=== PATIENT | male | born 1975 | race Caucasian/White ===

== ENCOUNTER 2018-05-10 07:45 | Emergency (ER) | payer OTHER, SELFPAY ==
[2018-05-10] MEDS ORDERED: Insulin Regular 300 UNITS/3 ML VIAL ONE (08:02)
[2018-05-10 08:19] LABS: #Basophils 0.1 thou/uL (0.0-0.2); #Eosinphils 0.1 thou/uL (0.0-0.7); #Lymphocytes 2.8 thou/uL (1.20-3.40); #Monocytes 0.6 thou/uL (0.11-0.59); #Neutrophils 4.4 thou/uL (1.40-6.50); %Basophils 0.9 % (0.0-1.0); %Eosinophils 1.4 % (0.0-10.0); %Monocytes 7.7 % (0.0-10.0); Hemoglobin 15.5 g/dL (14.0-18.0); Mean Corpuscular Hemoglobin 31.1 pg (27.0-31.0); Mean Corpuscular Volume 94.2 fL (78.0-98.0); Mean Platelet Volume 7.2 fL (7.4-10.4); Platelet Count 170 thou/uL (130-400); RBC Distribution Width 11.6 % (11.5-14.5); Red Blood Cell (RBC) Count 4.97 mill/uL (4.70-6.10)
--- NOTE | 2018-05-10 08:37 | RAD ---
PORTABLE UPRIGHT FRONTAL CHEST: Date: 05/10/18 COMPARISON: 01/04/14. HISTORY: Chest pain. FINDINGS: Dual lead transvenous pacing device noted inserted via left subclavian approach. No pneumothorax, ple ural fluid, focal consolidation, or alveolar edema. Rim-calcified structure in left upper quadrant, l ikely associated with the spleen noted. IMPRESSION: No focal consolidation or alveolar edema. POS: [facility]
[2018-05-10 08:41] LABS: ALT (SGPT) 41 U/L (8-55); AST (SGOT) 21 U/L (5-34); Albumin 3.6 g/dL (3.5-5.0); Alkaline Phosphatase 112 U/L (40-150); Anion Gap 13 mmol/L (10-20); BUN (Urea Nitrogen) 9 mg/dL (8.9-20.6); Bilirubin, Total 0.5 mg/dL (0.2-1.2); Calc. Creatinine Clearance 0 mL/min (70-130); Calcium 8.7 mg/dL (7.8-10.44); Carbon Dioxide 25 mmol/L (22-29); Chloride 104 mmol/L (98-107); Estimated GFR-MDRD 82; Globulin 2.2 g/dL (2.4-3.5); Glucose 527 mg/dL (70-105); Potassium 4.7 mmol/L (3.5-5.1); Protein, Total 5.8 g/dL (6.0-8.3); Sodium 137 mmol/L (136-145)
[2018-05-10 09:54] LABS: Bilirubin Negative (Negative); Blood, Urine Negative (Negative); Clarity CLEAR (Clear); Glucose, Urine (Dipstick) >=1000 mg/dL (Negative); Leukocyte Negative (Negative); Nitrite Negative (Negative); Protein, Urine (Dipstick) Negative (Neg-Trace); Urobilinogen 0.2 mg/dL (0.2-1.0); pH, Urine 5.5 (5.0-9.0)
== END 2018-05-10 09:50 | disposition left against medical advice (07) ==
LOC: ERS 07:45
DX: I48.91 Unspecified atrial fibrillation (principal); G47.30 Sleep apnea, unspecified; E11.649 Type 2 diabetes mellitus with hypoglycemia without coma; F17.210 Nicotine dependence, cigarettes, uncomplicated; Z79.84 Long term (current) use of oral hypoglycemic drugs
CPT/HCPCS: 36415; 36416; 71045; 80053; 81003; 82010; 83880; 84484; 85025; 93005; 96361; 96374; 96375; 96376; J1815

== ENCOUNTER 2019-08-09 20:31 | Emergency (ER) | payer SELFPAY ==
--- NOTE | 2019-08-10 09:42 | RAD ---
LEFT INDEX FINGER: HISTORY: Finger pain and swelling. FINDINGS: There are some mild arthritic changes present. I do not see any acute bony findings or signs for any soft tissue abscess collection. IMPRESSION: No acute findings. POS: [id number]
== END 2019-08-09 23:33 | disposition home or self-care (01) ==
LOC: ERS 20:31
DX: M79.645 Pain in left finger(s) (principal); L01.00 Impetigo, unspecified; G47.30 Sleep apnea, unspecified; E11.9 Type 2 diabetes mellitus without complications; F17.210 Nicotine dependence, cigarettes, uncomplicated